=== PATIENT | male | born 1960 | race Caucasian/White ===

== ENCOUNTER 2019-04-16 08:58 | Day surgery (SDC) | payer OTHER ==
[2019-04-16] MEDS ORDERED: LIDOCAINE 4% SOLUTION 50 ML BTL (10:23)
[2019-04-16] MEDS ORDERED: MIDAZOLAM 1 MG/ML 2 ML INJ ×2 (12:22→12:23)
[2019-04-16] MEDS ORDERED: FENTAnyl 50 MCG/ML VIAL (12:23)
== END 2019-04-16 12:38 | disposition home or self-care (01) ==
LOC: GIL 08:58
DX: Z12.11 Encounter for screening for malignant neoplasm of colon (principal); D12.0 Benign neoplasm of cecum; K57.90 Diverticulosis of intestine, part unspecified, without perforation or abscess without bleeding; K29.50 Unspecified chronic gastritis without bleeding
CPT/HCPCS: 43239; 88305; 88312